=== PATIENT | male | born 1990 | race African-American/Black ===

== ENCOUNTER 2017-11-20 20:00 | Emergency (ER) | payer BC, SELFPAY ==
[2017-11-20] MEDS ORDERED: Lorazepam 2 MG/ML VIAL ONE (21:06)
[2017-11-20] MEDS ORDERED: Ibuprofen 200 MG TAB ONE (23:26)
== END 2017-11-20 23:08 | disposition home or self-care (01) ==
LOC: ERS 20:00
DX: T40.5X5A Adverse effect of cocaine, initial encounter (principal); F17.210 Nicotine dependence, cigarettes, uncomplicated; Z71.6 Tobacco abuse counseling
CPT/HCPCS: 93005; 96361; 96374; 99406; J2060